=== PATIENT | male | born 1965 | race Caucasian/White ===

== ENCOUNTER 2023-06-08 21:51 | Emergency (ER) | payer MEDICAID ==
[~2023-06-08] VITALS: Ht 170.2 cm; Wt 67.7 kg
[~2023-06-08 21:51] MED LIST: METF500T
[2023-06-08 21:58] VITALS: BP 115/73; TEMP 98.7; O2SAT 98
[2023-06-08 22:01] VITALS: PULSE 70; RESP 16
[2023-06-08] MEDS ORDERED: HYDR99LO MT (22:46)
== END 2023-06-08 23:45 | disposition home or self-care (01) ==
LOC: ER 21:51
DX: K62.89 Other specified diseases of anus and rectum (principal); E11.9 Type 2 diabetes mellitus without complications
CPT/HCPCS: 99282